=== PATIENT | female | born 1960 | race African-American/Black ===

== ENCOUNTER 2021-09-24 06:20 | Emergency (ER) | payer MEDICAID ==
[~2021-09-24] VITALS: Ht 181.6 cm; Wt 110.0 kg
[2021-09-24 06:37] VITALS: BP 161/86
--- NOTE | 2021-09-24 06:45 | NUR ---
PT TAKEN TO BED 11.
--- NOTE | 2021-09-24 06:52 | NUR ---
PERFORMED VISUAL ACUITY PER . PT WEARS GLASSES. RT EYE 20/20. LEFT EYE 20/40. MADE AWARE.
--- NOTE | 2021-09-24 07:27 | NUR ---
MD GOLD AT PT BEDSIDE FOR FUTHER EVALUATION
[2021-09-24 08:10] VITALS: BP 137/76
--- NOTE | 2021-09-24 08:10 | NUR ---
Patient discharged with v/s stable. Written and verbal after care instructions given FOR MANAGING HYPERTENSION and explained. Patient verbalized understanding. Ambulatory with steady gait. All questions addressed prior to discharge. Advised to follow up with PMD.
== END 2021-09-24 08:10 | disposition home or self-care (01) ==
LOC: MED 06:20
DX: I10 Essential (primary) hypertension (principal); H53.8 Other visual disturbances; F12.90 Cannabis use, unspecified, uncomplicated
CPT/HCPCS: 93005; 99283